=== PATIENT | female | born 1980 | race Caucasian/White ===

== ENCOUNTER 2019-05-12 08:36 | Emergency (ER) | payer OTHER ==
[~2019-05-12] VITALS: Wt 65.9 kg
[2019-05-12 08:41] VITALS: BP 118/80; PULSE 95; RESP 20
[2019-05-12] MEDS ORDERED: ONDA4TAB14 PO (10:25)
[2019-05-12] MEDS ORDERED: ACET325T33 PO (10:25)
[2019-05-12] MEDS ORDERED: NORE-92 PO (10:35)
--- NOTE | 2019-05-12 14:37 | ERD ---
ER Documentation Chief Complaint Chief Complaint cc "hot flashes and sob" HPI 38-year-old female presenting with hot flashes and shortness of breath. Patient states that she denies any chest pain. Denies coughing. LNMP 3 months ago. Is not sure if she is . G6, . Denies medical problems. Irregular. OC denies OCP use. Patient is requesting OCP to initiate her period. Denies medical problems. NKDA. Surgical history on her nose. Social history denies ROS All systems reviewed and are negative except as per history of present illness. Medications Home Meds Active Scripts Norethindrone AC-Eth Estradiol (Loestrin 21 1-20 Tablet) 1 Each Tablet, 1 EACH P O DAILY, #30 TAB Prov:LIDIA BARRERA PA-C 05/12/19 Acetaminophen* (Tylenol*) 325 Mg Tablet, 2 TAB PO Q6 PRN for PAIN AND OR ELEVATED TEMP, #20 TAB Prov:LIDIA BARRERA PA-C 05/12/19 Ondansetron (Ondansetron Odt) 4 Mg Tab.rapdis, 4 MG PO Q6H PRN for NAUSEA AND/OR VOMITING, #10 TAB Prov:LIDIA BARRERA PA-C 05/12/19 Allergies Allergies: Coded Allergies: No Known Allergy (Unverified , 05/12/19) PMhx/Soc Medical and Surgical Hx: pt denies Medical Hx, pt denies Surgical Hx History of Surgery: No Hx Neurological Disorder: No Hx Respiratory Disorders: No Hx Cardiac Disorders: No Hx Psychiatric Problems: No Hx Miscellaneous Medical Probl: No Hx Alcohol Use: No Hx Substance Use: No Hx Tobacco Use: No Smoking Status: Never smoker FmHx Family History: No diabetes, No coronary disease, No other Physical Exam Vitals Vital Signs Date Temp Pulse Resp B/P (MAP) Pulse Ox O2 O2 Flow FiO2 Time Delivery Rate 05/12/19 98.0 95 20 118/80 100 08:41 (93) Physical Exam GENERAL: The patient is well-appearing, well-nourished, in no acute distres CHEST: Clear to auscultation bilaterally. There are no rales, wheezes or rhonchi. HEART: Regular rate and rhythm. No murmurs, clicks, rubs or gallops. No S3 or S4. ABDOMEN:Soft, nontender and nondistended. Good bowel sounds. No rebound or guarding. No gross peritonitis. No gross organomegaly or masses. NEUROLOGIC: Alert and oriented. Cranial nerves II through XII intact. Motor strength in all 4 extremities with 5 out of 5 strength. Sensation grossly intact. Normal speech and gait. SKIN: There is no apparent rash or petechiae. The skin is warm and dry. Result Diagram: 05/12/1992905/12/19929 Results 24 hrs Laboratory Tests Test 05/12/19 09:26 05/12/19 09:30 05/12/19 09:32 Urine Color YELLOW Urine Clarity SLIGHTLY CLOUDY Urine pH 5.0 Urine Specific Brayton 1.012 Urine Ketones NEGATIVE mg/dL Urine Nitrite NEGATIVE mg/dL Urine Bilirubin NEGATIVE mg/dL Urine Urobilinogen NEGATIVE mg/dL Urine Leukocyte Esterase 1+ Buffy/ul Urine Microscopic RBC 2 /HPF Urine Microscopic WBC 9 /HPF Urine Squamous Epithelial Cells FEW /HPF Urine Mucus MODERATE /HPF Urine Hemoglobin NEGATIVE mg/dL Urine Glucose NEGATIVE mg/dL Urine Total Protein NEGATIVE mg/dl White Blood Count 6.5 10^3/ul Red Blood Count 4.26 10^6/ul Hemoglobin 12.5 g/dl Hematocrit 38.3 % Mean Corpuscular Volume 89.9 fl Mean Corpuscular Hemoglobin 29.3 pg Mean Corpuscular 32.6 g/dl Hemoglobin Concent Red Cell Distribution Width 12.1 % Platelet Count 229 10^3/UL Mean Platelet Volume 9.9 fl Immature Granulocytes % 0.300 % Neutrophils % 63.7 % Lymphocytes % 29.2 % Monocytes % 5.1 % Eosinophils % 1.1 % Basophils % 0.6 % Nucleated Red Blood Cells % 0.0 /100WBC Immature Granulocytes # 0.020 10^3/ul Neutrophils # 4.1 10^3/ul Lymphocytes # 1.9 10^3/ul Monocytes # 0.3 10^3/ul Eosinophils # 0.1 10^3/ul Basophils # 0.0 10^3/ul Nucleated Red Blood Cells # 0.0 10^3/ul Sodium Level 144 mmol/L Potassium Level 3.8 mmol/L Chloride Level 106 mmol/L Carbon Dioxide Level 27 mmol/L Anion Gap 11 Blood Urea Nitrogen 4 mg/dl Creatinine 0.57 mg/dl Est Glomerular Filtrat > 60 mL/min Rate mL/min Glucose Level 100 mg/dl Calcium Level 10.1 mg/dl Total Bilirubin 1.4 mg/dl Direct Bilirubin 0.00 mg/dl Indirect Bilirubin 1.4 mg/dl Aspartate Amino 18 IU/L Transf (AST/SGOT) Alanine 14 IU/L Aminotransferase (ALT/SGPT) Alkaline Phosphatase 60 IU/L Total Protein 8.3 g/dl Albumin 4.6 g/dl Globulin 3.70 g/dl Albumin/Globulin Ratio 1.24 Lipase 72 U/L POC Beta HCG, Qualitative NEGATIVE Procedures/MDM MDM: 38-year-old female presenting with questions. I have low suspicion for cardiac or pulmonary emergency. I have low suspicion for elective imbalance. A low suspicion for urinary tract infection. I have low suspicion for pelvic or abdominal complication. Patient is discharged with strict ER precautions and told to follow-up with primary care within 1 to 2 days for close evaluation. Patient is told symptoms change or worsen to return immediately to the ER. All questions answered at discharge Departure Diagnosis: Primary Impression: Hot flashes Condition: Stable Patient Instructions: Abdominal Pain, Unknown Cause, (Female) Referrals: [facility] YOU HAVE RECEIVED A MEDICAL SCREENING EXAM AND THE RESULTS INDICATE THAT YOU DO NOT HAVE A CONDITION THAT REQUIRES URGENT TREATMENT IN THE EMERGENCY DEPARTMENT. FURTHER EVALUATION AND TREATMENT OF YOUR CONDITION CAN WAIT UNTIL YOU ARE SEEN IN YOUR DOCTORS OFFICE WITHIN THE NEXT 1-2 DAYS. IT IS YOUR RESPONSIBILITY TO MAKE AN APPOINTMENT FOR FOLOW-UP CARE. IF YOU HAVE A PRIMARY DOCTOR --you should call your primary doctor and schedule an appointment IF YOU DO NOT HAVE A PRIMARY DOCTOR YOU CAN CALL OUR PHYSICIAN REFERRAL HOTLINE AT IF YOU CAN NOT AFFORD TO SEE A PHYSICIAN YOU CAN CHOSE FROM THE FOLLOWING [facility] [address] [facility] [address] [facility]. [facility] [address] [facility]. [facility] [address] [facility]. [facility] [address] [facility]. [facility]. [address] Additional Instructions: FOLLOW UP WITH YOUR PRIMARY CARE PHYSICIAN TOMORROW.Return to this facility if you are not improving as expected. LIDIA BARRERA PA-C May 12, 2019 14:37
== END 2019-05-12 10:36 | disposition home or self-care (01) ==
LOC: FTE 08:36
DX: N95.1 Menopausal and female climacteric states (principal)
CPT/HCPCS: 36415; 80053; 81001; 81025; 83690; 85025; Z7502; 99283

== ENCOUNTER 2019-05-30 00:20 | Emergency (ER) | payer OTHER ==
[~2019-05-30] VITALS: Ht 167.6 cm; Wt 67.6 kg
[~2019-05-30 00:20] MED LIST: ACET325T33 PO; NORE-92 PO; ONDA4TAB14 PO
[2019-05-30 00:23] VITALS: Ht 167.6 cm; Wt 67.6 kg
--- NOTE | 2019-05-30 01:17 | ERD ---
ER Documentation Chief Complaint Chief Complaint abdominal pain with hot flushes since on and off since february. HPI Patient is a 38 years old female with no known past medical history presenting to the clinic for persistent hot flashes and mild abdominal cramps occasional nausea and vomiting since March 11, 2019. She was seen and evaluated for similar symptoms on May 12, 2019. Patient was given OCP and was advised to follow-up with her primary care and [facility] [facility]. She denies following up with her PCP or [facility] [facility] [facility]. Patient is requesting urine test that she is still concerned about possible . ROS All systems reviewed and are negative except as per history of present illness. Medications Home Meds Active Scripts Norethindrone AC-Eth Estradiol (Loestrin 21 1-20 Tablet) 1 Each Tablet, 1 EACH PO DAILY, #30 TAB Prov:LIDIA BARRERA PA-C 05/12/19 Acetaminophen* (Tylenol*) 325 Mg Tablet, 2 TAB PO Q6 PRN for PAIN AND OR ELEVATED TEMP, #20 TAB Prov:LIDIA BARRERA PA-C 05/12/19 Ondansetron (Ondansetron Odt) 4 Mg Tab.rapdis, 4 MG PO Q6H PRN for NAUSEA AND/OR VOMITING, #10 TAB Prov:LIDIA BARRERA PA-C 05/12/19 Allergies Allergies: Coded Allergies: No Known Allergy (Unverified , 05/12/19) PMhx/Soc Medical and Surgical Hx: pt denies Medical Hx, pt denies Surgical Hx History of Surgery: No Hx Neurological Disorder: No Hx Respiratory Disorders: No Hx Cardiac Disorders: No Hx Psychiatric Problems: No Hx Miscellaneous Medical Probl: No Hx Alcohol Use: No Hx Substance Use: No Hx Tobacco Use: No Smoking Status: Never smoker Physical Exam Vitals Vital Signs Date Temp Pulse Resp B/P (MAP) Pulse Ox O2 O2 Flow FiO2 Time Delivery Rate 05/30/19 98.7 72 18 110/69 99 02:04 (83) 05/30/19 97.7 79 16 140/80 99 00:23 (100) Physical Exam Const: No acute distress Head: Atraumatic Resp: Clear to auscultation bilaterally Cardio: Regular rate and rhythm, no murmurs Abd: Soft, non tender, non distended. Normal bowel sounds Psych: Normal Mood and Affect Results 24 hrs Laboratory Tests Test 05/30/19 01:51 POC Beta HCG, Qualitative NEGATIVE Procedures/MDM Patient was seen and evaluated for persistent hot flashes. Patient currently denies any vomiting or nausea episodes as of today not require any further work- up. Urine negative. Patient is stable ready for discharge. Follow-up with your PCP and [facility] [facility]. Departure Diagnosis: Primary Impression: Hot flashes Condition: Stable Patient Instructions: For Women: Deciding About Hormone Therapy (HT) Referrals: [facility] Additional Instructions: Patient advised to return to the ED immediately for new or worsening symptoms. Patient advised to follow up with primary care provider in the next 24-48 hours. Patient verbalized understanding and agrees with treatment plan and course of action. If patient has no primary care they may follow up with [facility] + [facility] [address] [place] [id number] or [facility] [id number] [place] [id number] or [facility] [address] [place] [address] ARLEY SEGURA PA-C May 30, 2019 01:17
[2019-05-30 02:04] VITALS: BP 110/69; PULSE 72; RESP 18
== END 2019-05-30 02:05 | disposition home or self-care (01) ==
LOC: FTE 00:20
DX: R23.2 Flushing (principal)
CPT/HCPCS: 81025; Z7502; 99282